=== PATIENT | male | born 1995 ===

== ENCOUNTER → 2016-10-21 | Outpatient (CLI) | payer BC ==
--- NOTE | 2016-10-21 18:12 | DX ---
PA and Lateral Chest - October 21, 2016 Clinical Indications: Cough and right-sided chest pain. Findings: The lungs are clear, and no masses are found. The heart and pulmonary vessels are normal. There are no pleural effusions and no pneumothorax. The bones are unremarkable for this age. Impression: Normal.
== END ==
LOC: BMCIMAGING 17:50
PROVIDERS: ATTEND Family Medicine
DX: R07.89 Other chest pain (principal); R05 Cough